=== PATIENT | female | born 1990 | race Caucasian/White ===

== ENCOUNTER 2025-05-15 17:11 | Emergency (ER) | payer BC, SELFPAY ==
[2025-05-15 17:17] VITALS: BP 166/105
[2025-05-15 18:01] VITALS: BP 140/93
[2025-05-15 18:09] VITALS: BMI 33.5
[2025-05-15 18:11] VITALS: BP 140/93
[2025-05-15] MEDS: PEPCID 40 MG PO (18:39)
[2025-05-15] MEDS: DECADRON 10 MG PO (18:40)
--- NOTE | 2025-05-15 18:59 | ED.GENMED ---
History of Present Illness
General
Chief Complaint: Allergic Reaction
Source: patient
Exam Limitations: none
Time Seen by Provider: 05/15/25 18:08
Nursing documentation reviewed up to this point in time: agreed with
History of Present Illness
History of Present Illness:
Patient is a 34-year-old female who presents to the ER for evaluation. Patient has been on naproxen for knee pain for the past week in addition she notes that she has also been on Macrobid for UTI however completed the dose yesterday. The past
several days she has noticed that her throat felt a little tight and today symptoms felt slightly increased. She felt as if her throat had a closing sensation. She however was able to tolerate her own secretions and drink fluids. She called her
family doctor and took 2 Benadryl. She denies any rash denies any lip swelling. She was not sure if her tongue felt mildly swollen. She denies any vomiting. She is feeling improved since taking Benadryl. This does not feel like a sore throat to
her.
Past History
Past History
ED Past Medical History: Other (Gestational diabetes and hypertension)
ED Past Surgical History:
Social History
Tobacco: Non-smoker
Phy Exam
General Physical Exam
General Presentation: well appearing
General age: appears stated age
General Skin: warm and dry
General Habitus: normal
General Mental: alert
General Hydration: appears well hydrated
ENT Exam
ENT Exam: EOMI, neck supple and other (pharynx is patent , no tongue swelling no drooling no redness /exudate to throat/tonsils )
Cardiovascular Exam
Cardiovascular Exam: regular rate/rhythm, no murmur and normal peripheral pulses
Pulmonary Exam
Pulmonary Exam: lungs clear and no respiratory distress
Neurological Exam
Neurological Exam: alert and oriented x3
Musculoskeletal Exam
Musculoskeletal Exam: full ROM and other (Normal inspection to the left lower extremity normal inspection to knee no obvious swelling full range of motion strong pulses no erythema)
Skin Exam
Skin Exam: normal color and warm/dry
Psychiatric Exam
Psychiatric Exam: normal mood/affect
Course
Orders/Labs/Results
Orders:
Orders
05/15/25 18:33
Dexamethasone Pf [Decadron] 10 mg PO NOW STA
Famotidine [Pepcid] 40 mg PO NOW STA
05/15/25 18:59
Knee, Left 4 or More Views [CR Knee - Left 4 Or More View*] Urgent
Comment:
Reason For Exam: pain
Vital Signs
Initial and Last Documented VS:
Initial Vital Signs
Temp Pulse Resp BP Pulse Ox
98.2 F 79 20 166/105 100
05/15/25 17:17 05/15/25 17:17 05/15/25 17:17 05/15/25 17:17 05/15/25 17:17
Last Documented Vital Signs
Temp Pulse Resp BP Pulse Ox
98.2 F 73 16 125/89 100
05/15/25 17:17 05/15/25 19:30 05/15/25 19:30 05/15/25 19:29 05/15/25 19:30
MDM/Problems Addressed
Differential Diagnosis Includes:
not limited to: allergic reaction
MDM/Problems Addressed:
symptoms are consistent with possible mild allergic reaction. Pt is well-appearing in no acute distress nontoxic throat is patent no drooling lungs are clear no lip or tongue swelling patient was on naproxen as well as antibiotic it is difficult to
ascertain which medication.
Symptoms are not consistent with URI.
Discussed with patient to avoid both medications will give a dose of Decadron here in the ER as well as Pepcid and have patient continue Pepcid and Benadryl with close outpatient follow-up.
As a courtesy patient's left knee was x-rayed. She is scheduled to come back tomorrow for an x-ray of the knee however asked if this could be done since she is here. She has been having knee pain and her family doctor ordered an x-ray. no swelling
on exam good ROM no fevers.
*Pulse Oximetry
SaO2: 100
Oxygen Mode of Delivery: Room air
Patient hypoxic: no
*Critical Care Note
Total Time (30-74mins, 75-104mins- exclusive of procedures): Not Applicable
ED Attending Note
-
Portions of this chart may have been created with voice recognition software.� Occasional wrong word or��sound alike� substitutions may have occurred due to the inherent limitations of voice recognition software.
Discharge Plan
Departure
Patient Disposition: Home (Routine Discharge)
Date of Disposition: 05/15/25
Time of Disposition: 19:29
Patient with high blood pressure during this ER visit?: Yes
Condition: Fair
Covid-19: Not Applicable
Discharge Problem:
Allergic reaction
Instructions: Adverse Drug Reactions, Adult (DC), BLOOD PRESSURE
Prescriptions:
No Action
PNV no.95-ferrous fumarate-FA [] 1 EACH tablet
1 ea PO DAILY
acetaminophen 325 MG tablet
650 mg PO Q4HPRN PRN (Reason: mild pain) 0RF
sennosides-docusate sodium 1 TABLET tablet
1 tab PO DAILYPRN PRN (Reason: constipation) 0RF
oxycodone-acetaminophen 5 MG/325 MG tablet
1 tab PO Q4HPRN PRN (Reason: moderate pain) Qty: 10 0RF
ibuprofen 600 MG tablet
600 mg PO Q4HPRN PRN (Reason: cramps) Qty: 30 0RF
simethicone [Gas Relief 80 (simethicone)] 80 MG tablet,chewable
80 mg PO TIDPRN PRN (Reason: flatulence) 0RF
Referrals:
UNKNOWN - PT DOES,NOT KNOW [Unknown Provider]
Activity Restrictions/Additional Instructions:
As discussed continue Benadryl every 4-6 hours he may also take daily Pepcid for the next several days. Return however to the ER for any worsening of symptoms if any type of difficulty breathing lip or tongue swelling hives or any further concerns.
Interventions
Interventions:
*Risk Screen - Suicide Last Done: 05/15/25 17:17
*General Assessment Last Done: 05/15/25 18:09
*Neglect/Abuse Screening Last Done: 05/15/25 17:17
*ED- Fall Risk Assessment Last Done: 05/15/25 18:09
*ED COVID-19 Vaccine History Last Done: 05/15/25 18:09
*ED Influenza Vaccine History Last Done: 05/15/25 18:09
*Nursing Disposition Last Done: 05/15/25 19:47
ED- Cardiac Assessment Last Done: 05/15/25 18:18
ED- Pulmonary Assessment Last Done: 05/15/25 18:18
ED-Skin Assessment Last Done: 05/15/25 18:18
Discharge Date and Time
Discharge Date/Time: 05/15/25 19:47
Print Language: SWEDISH
[2025-05-15 19:00] VITALS: BP 130/89
[2025-05-15 19:29] VITALS: BP 125/89
== END 2025-05-15 19:47 | disposition home or self-care (01) ==
LOC: EMR 17:11
PROVIDERS: EMERGENCY PHYSICIAN Emergency Medicine; FAMILY PHYSICIAN Internal Medicine
DX: T78.40XA Allergy, unspecified, initial encounter (principal); X58.XXXA Exposure to other specified factors, initial encounter; M25.562 Pain in left knee; I10 Essential (primary) hypertension; Z87.440 Personal history of urinary (tract) infections
CPT/HCPCS: 99283; 73564